=== PATIENT | female | born 1970 | race Caucasian/White ===

== ENCOUNTER → 2016-07-29 | Outpatient (CLI) | payer OTHER ==
[~2016-07-29] MED LIST: ALBU1AER9 INH; CYAN1LOZ PO; MTR600X PO; OXYC-643 PO; VITA1TAB4 PO; VITACAP26 PO
--- NOTE | 2016-07-29 14:32 | MAMMOGRAPHY REPORT ---
BILATERAL DIGITAL SCREENING MAMMOGRAM TOMOSYNTHESIS WITH CAD: 07/29/2016 CLINICAL HISTORY: Routine screening. Patient has no complaints. TECHNIQUE: Breast tomosynthesis in addition to standard 2D mammography was performed. Current study was also evaluated with a Computer Aided Detection (CAD) system. COMPARISON: Comparison is made to exams dated: 07/22/2015 mammogram, 05/02/2013 mammogram, 06/12/2014 mammogram, 04/19/2012 mammogram, and 04/14/2011 mammogram - [facility]. BREAST COMPOSITION: The tissue of both breasts is heterogeneously dense, which may obscure small ma sses. FINDINGS: The parenchymal pattern is unchanged. No developing mass, architectural distortion or clu ster of suspicious microcalcifications is seen in either breast. IMPRESSION: ACR BI-RADS CATEGORY 2: BENIGN There is no mammographic evidence of malignancy. A 1 year screening mammogram is recommended. The p atient will receive written notification of the results. Approximately 10% of breast cancers are not detected with mammography. A negative mammographic repor t should not delay biopsy if a clinically suggestive mass is present. Prerna Abbott M.D. ay/:07/29/2016 12:48:50 Credentialing Specialist: Shweta NGUYEN(R)(M), [facility] letter sent: Normal 1/2 BI-RADS Code: ACR BI-RADS Category 2: Benign
== END | disposition home or self-care (01) ==
LOC: C.MAMM 09:44
PROVIDERS: ATTEND Obstetrics & Gynecology
DX: Z12.31 Encounter for screening mammogram for malignant neoplasm of breast (principal)

== ENCOUNTER → 2017-08-08 | Outpatient (CLI) | payer BC ==
--- NOTE | 2017-08-10 07:50 | MAMMOGRAPHY REPORT ---
BILATERAL DIGITAL SCREENING MAMMOGRAM TOMOSYNTHESIS WITH CAD: 08/08/2017 CLINICAL HISTORY: Routine screening. TECHNIQUE: Breast tomosynthesis in addition to standard 2D mammography was performed. Current study was also evaluated with a Computer Aided Detection (CAD) system. COMPARISON: Comparison is made to exams dated: 07/29/2016 mammogram, 07/22/2015 mammogram, 06/12/2014 ma mmogram, 05/02/2013 mammogram, 04/19/2012 mammogram, and 04/14/2011 mammogram - [facility]. BREAST COMPOSITION: The tissue of both breasts is heterogeneously dense, which may obscure small mas ses. FINDINGS: The parenchymal pattern is unchanged. No developing mass, architectural distortion or clus ter of suspicious microcalcifications is seen in either breast. IMPRESSION: ACR BI-RADS CATEGORY 2: BENIGN There is no mammographic evidence of malignancy. A 1 year screening mammogram is recommended. The pa tient will receive written notification of the results. Approximately 10% of breast cancers are not detected with mammography. A negative mammographic report should not delay biopsy if a clinically suggestive mass is present. Prerna Abbott M.D. ay/:08/08/2017 16:27:49 Stem Roller: Shweta NGUYEN(R)(M), [facility] letter sent: Normal 1/2 BI-RADS Code: ACR BI-RADS Category 2: Benign
== END | disposition home or self-care (01) ==
LOC: C.MAMM 14:15
PROVIDERS: ATTEND Physician Assistant
DX: Z12.31 Encounter for screening mammogram for malignant neoplasm of breast (principal)

== ENCOUNTER 2017-09-10 12:43 | Emergency (ER) | payer BC ==
[~2017-09-10] VITALS: Ht 162.6 cm; Wt 88.9 kg
[2017-09-10 12:45] VITALS: TEMP 36.7; Ht 162.6 cm; Wt 88.9 kg
[2017-09-10] MEDS ORDERED: KETOROLAC TROMETHAMINE 60 MG/2 ML VIAL IM STA (13:12)
[2017-09-10] MEDS ORDERED: CYCLOBENZAPRINE HCL 10 MG TAB PO STA (13:12)
[2017-09-10] MEDS ORDERED: DEXAMETHASONE **PF** INJ 10 MG/ML VIAL IM ONE (13:15)
--- NOTE | 2017-09-10 14:17 | DIAGNOSTIC IMAGING REPORT ---
LUMBAR SPINE 5 VIEWS CLINICAL HISTORY: Low back pain. FINDINGS: 5 views of the lumbar spine are obtained. No prior studies are available for comparison at the time of dictation. The skeletal structures are well mineralized. There is no radiographic evidence of fracture or malalignment. Vertebral body height and alignment are maintained. The transverse and spinous processes are intact. Tiny anterior osteophytes are seen in the lower lumbar spine. There is no evidence of spondylolysis. The intervertebral disc spaces are well-maintained. The visualized bony pelvis appears intact. There is a nonobstructed abdominal bowel gas pattern. IMPRESSION: Unremarkable radiographic evaluation of the lumbosacral spine. Electronically signed by: Geoffrey Rowland M.D. 09/10/2017 2:15 PM Dictated Date/Time: 09/10/2017 2:14 PM
[2017-09-10] MEDS ORDERED: CYCL10TA6 PO (14:57)
[2017-09-10] MEDS ORDERED: DICL75TA2 PO (14:57)
[2017-09-10] MEDS ORDERED: PRED20TA2 PO (14:57)
[2017-09-10 15:04] VITALS: BP 146/85; PULSE 65; O2SAT 98
--- NOTE | 2017-09-10 17:55 | EMERGENCY ROOM VISIT NOTE ---
History First contact with patient: 13:02 Chief Complaint: BACK PAIN Stated Complaint: LOWER BACK PAIN History of Present Illness The patient is a 46 year old female who presents to the Emergency Room with complaints of low back pain radiating into her left side leg. The patient believes she initially hurt herself 3 days ago when lifting a container of milk in her barn. She has had some back problems in the past, but these typically improve over a few days. She states her symptoms this time have been slowly worsening over the past 3 days which is atypical for her. She is having difficulty standing and walking as this worsens her pain. When she rests things do get better. She did take ibuprofen this morning with only minimal improvement of symptoms. The patient has been able to use the bathroom as normal, and does not report incontinence. No recent fevers or chills. No history of back surgery. She rates her current discomfort a 7/10. Review of Systems More than 10 systems were reviewed and otherwise negative with the exception of history of present illness. Past Medical/Surgical History Medical Problems: (1) Failed hormonal therapy Family History No pertinent family history Social History Smoking Status: Never Smoker Housing Status: lives with family Current/Historical Medications Scheduled Cyclobenzaprine Hcl (Flexeril), 10 MG PO TID Diclofenac Sodium (Voltaren), 75 MG PO BID Prednisone (Prednisone Tab), 2 TAB PO DAILY Physical Exam Vital Signs Date Time Temp Pulse Resp B/P (MAP) Pulse Ox O2 Delivery O2 Flow Rate FiO2 09/10/17 15:04 65 18 146/85 98 09/10/17 12:45 36.7 68 18 131/84 98 Room Air Physical Exam VITALS: Vitals are noted on the nurse's note and reviewed by myself. Vital signs stable. GENERAL: Well-developed, well-nourished, white female, who appears uncomfortable in her emergency department bed. Changing positions seems to worsen her discomfort. NECK: Supple without nuchal rigidity. No lymphadenopathy. No thyromegaly. Cervical spine is nontender. HEART: Regular rate and rhythm without murmurs gallops or rubs. LUNGS: Clear to auscultation bilaterally without wheezes, rales or rhonchi. No retractions or accessory muscle use. ABDOMEN: Positive normal bowel sounds x 4. Soft, nontender, without masses or organomegaly. No guarding or rebound tenderness. MUSCULOSKELETAL: There is tenderness appreciated in the lower lumbar spine and left SI joint. No spinous process step-off or significant paravertebral spasm noted. No saddle paresthesias. Positive straight leg raise on the left but not the right. Neurovascular status is intact distally. NEURO: Patient was alert and oriented to person place and time. CN II through XII grossly intact. No focal neurological deficits. Deep tendon reflexes 2+ throughout. SKIN: The skin was without rashes, erythema, edema, or bruising. Capillary refill less than 2 seconds. Medical Decision & Procedures ER Provider Diagnostic Interpretation: LUMBAR SPINE 5 VIEWS CLINICAL HISTORY: Low back pain. FINDINGS: 5 views of the lumbar spine are obtained. No prior studies are available for comparison at the time of dictation. The skeletal structures are well mineralized. There is no radiographic evidence of fracture or malalignment. Vertebral body height and alignment are maintained. The transverse and spinous processes are intact. Tiny anterior osteophytes are seen in the lower lumbar spine. There is no evidence of spondylolysis. The intervertebral disc spaces are well-maintained. The visualized bony pelvis appears intact. There is a nonobstructed abdominal bowel gas pattern. IMPRESSION: Unremarkable radiographic evaluation of the lumbosacral spine. Medications Administered Medications (Trade) Dose Ordered Sig/Keith Route Start Time Stop Time Status Last Admin Dose Admin Ketorolac Tromethamine (Toradol Inj) 60 mg NOW STAT IM 09/10/17 13:12 09/10/17 13:14 DC 09/10/17 13:25 60 MG Dexamethasone Sodium Phosphate (Dexamethasone Inj Pf) 10 mg NOW ONCE IM 09/10/17 13:15 09/10/17 13:16 DC 09/10/17 13:25 10 MG Cyclobenzaprine HCl (Flexeril Tab) 10 mg NOW STAT PO 09/10/17 13:12 09/10/17 13:14 DC 09/10/17 13:24 10 MG ED Course Physical exam and history were performed. Nursing notes, EMR, and Medication List were personally reviewed. Patient appears to have left-sided low back pain with radiation down her left leg. Her exam and history is not consistent with cauda equina or spinal abscess. She is palpably tender and is uncomfortable with movement in her ER bed. I discussed options of care with the patient. She evidently has significant nausea with narcotic products. Because of this she was given IM Toradol, IM Decadron, and oral Flexeril. I did elect perform x-rays. The patient's x-rays are as above and were reviewed by myself and radiology as showing no acute process. On reevaluation the patient was able to rest much more comfortably in her ER bed. I discussed options of care with the family, and she does feel comfortable with discharge home. I will give her a course of diclofenac, steroids, and muscle relaxers. The patient should follow with her primary care physician later this week for a recheck of her condition. She was certainly invited back to the ER with any new, worsening, or concerning symptoms. The chart was completed utilizing [employer] Speech Voice Recognition Software. Grammatical errors, random word insertions, pronoun errors, and incomplete sentences are an occasional consequence of this system due to software limitations, ambient noise, and hardware issues. Any formal questions or concerns about the content, text, or information contained within the body of this dictation should be directly addressed to the provider for clarification. . Medical Decision Differential diagnosis: Etiologies such as musculoskeletal, disc herniation, fracture, aortic disease, metastatic disease, cord compression, discitis, infection, renal colic, gastrointestinal, acute exacerbation of chronic back pain, sciatica, cauda equina, as well as others were entertained. Impression Primary Impression: Low back pain with sciatica Departure Information Dispostion Home / Self-Care Condition GOOD Prescriptions Prednisone (Prednisone Tab) 20 Mg Tab 2 TAB PO DAILY for 5 Days, #10 TAB Prov: Kennedy Us PA-C 09/10/17 Cyclobenzaprine Hcl (FLEXERIL) 10 Mg Tab 10 MG PO TID for 7 Days, #21 TAB Prov: Kennedy Us PA-C 09/10/17 Diclofenac Sodium (VOLTAREN) 75 Mg Tab 75 MG PO BID for 30 Days, #60 TAB Prov: Kennedy Us PA-C 09/10/17 Forms HOME CARE DOCUMENTATION FORM, IMPORTANT VISIT INFORMATION Patient Instructions My [facility] Additional Instructions You were seen and evaluated today on an emergency basis only. This is not a substitute for, or an effort to provide, complete comprehensive medical care. It is not possible to recognize and treat all injuries or illnesses in a single emergency department visit. For this reason it is recommended that you followup with your primary care physician this week for recheck of your condition. Take diclofenac 75 mg twice daily with food for the next 7 days. You may take Tylenol 1000 mg every 6-8 hours. Flexeril 1 tablet up to 3 times a day as needed for muscle spasms. No driving, working, or alcohol use with Flexeril. Take prednisone 40 mg daily for the next 5 days. We recommend taking this in the morning as it can be difficult to sleep if this is taken too late in the day. You are welcome to return to the emergency department anytime with new, worsening, or concerning symptoms.
== END 2017-09-10 15:05 | disposition home or self-care (01) ==
LOC: C.EDB 12:44 → C.EDD 15:05
DX: M54.42 Lumbago with sciatica, left side (principal)